=== PATIENT | female | born 2000 | race Caucasian/White ===

== ENCOUNTER 2024-10-09 21:11 | Emergency (ER) | payer BC ==
[2024-10-09 21:42] LABS: Specific Gravity < 1.005 (1.005-1.030)
[2024-10-09 22:05] LABS: Anion Gap 10.3 mEq/L (5.0-15.0); Potassium 3.3 mEq/L (3.5-5.1)
--- NOTE | 2024-10-09 22:08 | RAD REPORT ---
EXAM: Chest Single View HISTORY: 23 years Female Chest pain;Palpitations COMPARISON: None. FINDINGS: LUNGS/PLEURA: The lungs are clear. No pleural effusions or pneumothorax. No pulmonary edema. CARDIAC/MEDIASTINUM: The cardiac silhouette is within normal limits. UPPER ABDOMEN: No significant abnormality. BONES: No acute abnormality. LINES/TUBES/OTHER: N/A IMPRESSION: No evidence of acute cardiopulmonary disease.
[2024-10-09 22:09] LABS: Absolute Basophils 0.1 K/uL (0-0.5); Absolute Lymphocytes (CBC) 1.5 K/uL (0.7-4.9); Absolute Monocytes 0.4 K/uL (0.1-1.3); Absolute Neutrophil 7.4 K/uL (1.8-8.0); Basophils % 0.6 % (0-1.3); Eosinophils % 0.3 % (0-4.4); Hematocrit 35.2 % (36.0-45.0); Hemoglobin 12.5 g/dL (12.0-15.0); Lymphocytes % 15.9 % (15.3-44.8); MCH 33.7 pg (27.0-35.0); MCHC 35.6 g/dL (32.0-36.0); MCV 94.5 fL (80-100); MPV 7.1 fL (7.6-11.3); Monocytes % 4.3 % (3.3-12.3); Neutrophils % 78.9 % (41.7-73.7); Platelets 255 thou/uL (152-406); RBC Red Blood Cell Count 3.72 M/uL (3.86-4.86)
[2024-10-09] MEDS ORDERED: POTASSIUM CL SA 10 MEQ TAB PO ONE (22:47)
--- NOTE | 2024-10-09 22:55 | EDPHYS ---
Physician Documentation [facility] Name: Eliane Frederick Age: 23 yrs Sex: Female : 2000 Arrival Date: 10/09/2024 Time: 21:11 Bed 2 Private MD: ED Physician Guy Gonzalez HPI: 10/09 21:23 This 23 yrs old Female presents to ER via Unassigned with complaints of palpitations. rn 21:23 The patient presents with a history of irregular heart beat, heart racing. Onset: The rn symptoms/episode began/occurred just prior to arrival. Duration: The patient or guardian reports multiple episodes, that are intermittent. Modifying factors: The symptoms are aggravated by nothing. The symptoms are alleviated by Distraction. Severity of symptoms: At their worst the symptoms were moderate in the emergency department the symptoms have improved. The patient has experienced similar episodes in the past. Patient reports intermittent palpitations and chest pressure, happens about twice a month for a while now, has seen physicians without clear diagnosis. Has been told in the past is anxiety and is alleviated by distraction either tactile or distraction with her phone. No family history of early cardiac disease. No sudden in family. Patient denies any fever or cough. No recent illness. No trauma. No abdominal pain. Not sure if she is , reports irregular bleeding and was 2 weeks late. 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 - Infectious Disease History:: Denies. - Family history:: not pertinent. - Social history:: Smoking status: Patient/guardian denies using tobacco, Stopped _ months ago 3. - Hospitalizations: : No recent hospitalization is reported. ROS: 21:23 Constitutional: Negative for fever, chills, and weight loss, Cardiovascular: Positive rn for chest pressure and palpitations Respiratory: Negative for shortness of breath, cough, wheezing, and pleuritic chest pain, Abdomen/GI: Negative for abdominal pain, nausea, vomiting, diarrhea, and constipation, MS/Extremity: Negative for injury and deformity, Neuro: Negative for headache, weakness, numbness, tingling, and seizure, positive for spasms in all 4 extremities Exam: 21:23 Constitutional: This is a well developed, well nourished patient who is awake, alert, rn and in no acute distress. Appears anxious, intermittent spasms of extremities noted Cardiovascular: Regular rate and rhythm. No pulse deficits. Respiratory: No increased work of breathing, no retractions or nasal flaring. Abdomen/GI: Soft, non-tender, with normal bowel sounds. No distension or tympany. No guarding or rebound. No evidence of tenderness throughout. Skin: Warm, no cyanosis Neuro: Awake and alert, GCS 15 21:34 ECG was reviewed by the Attending Physician. rn Vital Signs: 21:12 BP 140 / 91; Pulse 83; Resp 15; Temp 98.8; Pulse Ox 100% ; vc1 21:30 BP 124 / 81; Pulse 75; Resp 19; Pulse Ox 100% ; al5 22:48 BP 124 / 84; Pulse 63; Resp 16; Pulse Ox 100% ; al5 MDM: 21:12 Medical Screening Exam initiated rn 22:54 Differential diagnosis: arrythmia, dehydration, stress disorder. Data reviewed: vital rn signs, nurses notes, lab test result(s), EKG, radiologic studies, plain films, and as a result, I will discharge patient. Counseling: I had a detailed discussion with the patient and/or guardian regarding the historical points, exam findings, and any diagnostic results supporting the discharge/admit diagnosis, lab results, radiology results, the need for outpatient follow up, to return to the emergency department if symptoms worsen or persist or if there are any questions or concerns that arise at home. Response to treatment: the patient's symptoms have resolved after treatment, the patient's condition has returned to base line, the patient is now symptom free, and as a result, I will discharge patient. Special discussion: I discussed with the patient/guardian in detail that at this point there is no indication for admission to the hospital. It is understood, however, that if the symptoms persist or worsen the patient needs to return immediately for re-evaluation. Special discussion: Based on the history and exam findings, there is no indication for further emergent testing or inpatient evaluation. I discussed with the patient/guardian the need to see the clean out driller for further evaluation of the symptoms. ED course: No acute findings and workup. Troponin negative. D-dimer negative. Chest x-ray images negative per my interpretation. No oxygen requirement and no evidence of arrhythmia here. Has been happening for a long time with several episodes during each month. ECG shows possible left atrial enlargement. Told her she absolutely needs to follow-up to rule out mitral valve prolapse or other arrhythmia with Holter monitor and echo. Understands the need to follow-up. I have personally reviewed all of the results, including but not limited to blood tests and imaging deemed necessary to safely discharge this patient at this time. All results given to and printed out for patient. I personally went over all the results with the patient and answered all questions. Patient will follow-up with PCP and or specialist as discussed. Return precautions given and understood.. 10/09 21:21 Order name: Basic Metabolic Panel; Complete Time: : rn 10/09 21:21 Order name: CBC with Diff; Complete Time: : 10/09 21:21 Order name: D-Dimer; Complete Time: 22: rn 10/09 21:21 Order name: NT PRO-BNP; Complete Time: : rn 10/09 21:21 Order name: Troponin HS; Complete Time: : rn 10/09 21:21 Order name: Test, Urine; Complete Time: :10/09 21:21 Order name: XRAY Chest (1 view); Complete Time: :15 rn 10/09 21:21 Order name: Cardiac monitoring; Complete Time: :10/09 21:21 Order name: EKG - Nurse/Tech; Complete Time: :10/09 21:21 Order name: IV Saline Lock; Complete Time: :10/09 21:21 Order name: Labs collected and sent; Complete Time: :10/09 21:21 Order name: O2 Per Protocol; Complete Time: 10/09 21:21 Order name: O2 Sat Monitoring; Complete Time: : rn EC:34 Rate is 85 beats/min. Rhythm is regular. QRS Meridian is Normal. OR interval is normal. QRS rn interval is normal. QT interval is normal. No Q waves. T waves are Normal. No ST changes noted. Clinical impression: NSR w/ Non-specific ST/T Changes. Interpreted by me. Reviewed by me. Administered Medications: 22:50 Drug: Potassium Chloride PO 40 mEq PO once Route: PO; al5 23:01 Follow up: Response: No adverse reaction al5 Disposition Summary: 10/09/24 22:55 Discharge Ordered Notes: Location: Home rn Problem: an ongoing problem rn Symptoms: have improved rn Condition: Stable rn Diagnosis - Palpitations rn - Chest pain, unspecified rn Followup: rn - With: Private Physician - When: As needed - Reason: Recheck today's complaints, Re-evaluation by your physician Discharge Instructions: - Discharge Summary Sheet rn - Nonspecific Chest Pain, Adult rn - Palpitations rn Forms: - Medication Reconciliation Form rn - Antibiotic rn case mgr - Prescription Opioid Use rn - Patient Portal Instructions rn - Leadership Thank You Letter rn Signatures: Dispatcher [employer] EDMS Guy Gonzalez MD MD rn Calcote, Vanessa, RN RN vc1 Mattie Deluna RN RN al5 Corrections: (The following items were deleted from the chart) 21:22 21:22 Chest Single View+RAD.RAD.BRZ ordered. EDTX EDMS
--- NOTE | 2024-10-09 22:55 | ER ---
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 vc1 21:12 Coronavirus screen: Client denies travel out of the [place] in the last 14 days. At this vc1 time, the client does not indicate any symptoms associated with coronavirus-19. Ebola Screen: Patient negative for fever greater than or equal to 101.5 degrees Fahrenheit, and additional compatible Ebola Virus Disease symptoms Patient denies exposure to infectious person. Patient denies travel to an Ebola-affected area in the 21 days before illness onset. No symptoms or risks identified at this time. Initial Sepsis Screen: Does the patient meet any 2 criteria? No. Patient's initial sepsis screen is negative. Does the patient have a suspected source of infection? No. Patient's initial sepsis screen is negative. Risk Assessment: Do you want to hurt yourself or someone else? Patient reports no desire to harm self or others. Onset of symptoms was October 09, 2024. Care prior to arrival: Medication(s) given: Normal saline infusion, 700cc IV initiated. 20 GA, in the left antecubital area, Glucose check: 84. 21:12 Method Of Arrival: EMS: [facility] vc1 21:12 Acuity: MURALI 3 vc1 Triage Assessment: 21:12 General: Appears in no apparent distress. uncomfortable, slender, well groomed, well vc1 developed, well nourished, Behavior is cooperative, anxious. Pain: Complains of pain in right mid back and chest Pain does not radiate. Pain currently is 8 out of 10 on a pain scale. Quality of pain is described as tightness Pain began suddenly. EENT: No deficits noted. No signs and/or symptoms were reported regarding the EENT system. Neuro: Level of Consciousness is awake, alert, obeys commands, Oriented to person, place, time, situation, Appropriate for age. Neuro: Reports tingling. Cardiovascular: Reports chest pain, palpitations, Heart tones S1 S2 present Capillary refill < 3 seconds Patient's skin is warm and dry. Respiratory: Airway is patent Respiratory effort is even, unlabored, Respiratory pattern is regular, symmetrical, Breath sounds are clear. GI: No deficits noted. No signs and/or symptoms were reported involving the gastrointestinal system. : No deficits noted. No signs and/or symptoms were reported regarding the genitourinary system. Urine is clear. Derm: Skin is intact, is healthy with good turgor, Skin is dry, Skin is normal, Skin temperature is warm. Musculoskeletal: Circulation, motion, and sensation intact. Range of motion: intact in all extremities. 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 - Infectious Disease History:: Denies. - Family history:: not pertinent. - Social history:: Smoking status: Patient/guardian denies using tobacco, Stopped _ months ago 3. - Hospitalizations: : No recent hospitalization is reported. Screenin:12 [facility] ED Fall Risk Assessment (Adult) History of falling in the last 3 months, vc1 including since admission No falls in past 3 months (0 pts) Confusion or Disorientation No (0 pts) Intoxicated or Sedated No (0 pts) Impaired Gait No (0 pts) Mobility Assist Device Used No (0 pt) Altered Elimination No (0 pt) Score/Fall Risk Level 0 - 2 = Low Risk Oriented to surroundings, Maintained a safe environment, Educated pt \T\ family on fall prevention, incl call for assistance when getting out of bed, Provided non-skid footwear, Hourly rounding (assess needs \T\ fall precautionary measures) done. Abuse screen: Denies threats or abuse. Nutritional screening: No deficits noted. Tuberculosis screening: No symptoms or risk factors identified. Assessment: 22:52 General: Appears in no apparent distress. comfortable, Behavior is calm, cooperative. al5 Pain: Denies pain. Neuro: Level of Consciousness is awake, alert, obeys commands, Oriented to person, place, time, situation. Cardiovascular: Reports chest pain initially, denies now Capillary refill < 3 seconds Patient's skin is warm and dry. Rhythm is sinus rhythm. Respiratory: Airway is patent Respiratory effort is even, unlabored, Respiratory pattern is regular, symmetrical. GI: No signs and/or symptoms were reported involving the gastrointestinal system. : No signs and/or symptoms were reported regarding the genitourinary system. EENT: No signs and/or symptoms were reported regarding the EENT system. Derm: Skin is intact, is healthy with good turgor, Skin is pink, warm \T\ dry. normal. Musculoskeletal: No signs and/or symptoms reported regarding the musculoskeletal system. Vital Signs: 21:12 BP 140 / 91; Pulse 83; Resp 15; Temp 98.8; Pulse Ox 100% ; vc1 21:30 BP 124 / 81; Pulse 75; Resp 19; Pulse Ox 100% ; al5 22:48 BP 124 / 84; Pulse 63; Resp 16; Pulse Ox 100% ; al5 ED Course: 21:12 Patient arrived in ED. rn 21:12 Guy Gonzalez MD is Attending Physician. rn 21:12 Patient has correct armband on for positive identification. Bed in low position. Call vc1 light in reach. Side rails up X 1. Provided Education on: plan of care. bath house attendant on. Pulse ox on. NIBP on. 21:15 Arm band placed on left wrist. vc1 21:15 Maintain EMS IV. Dressing intact. Good blood return noted. Site clean \T\ dry. Gauge \T\ vc 1 site: 20G L AC. Flushed with 10 mL NS. 21:38 Triage completed. vc1 21:40 XRAY Chest (1 view) In Process Unspecified. EDMS 22:50 Mattie Deluna, RN is Primary Nurse. al5 22:53 No provider procedures requiring assistance completed. al5 23:00 IV discontinued, intact, bleeding controlled, No redness/swelling at site. Pressure al5 dressing applied. Administered Medications: 22:50 Drug: Potassium Chloride PO 40 mEq PO once Route: PO; al5 23:01 Follow up: Response: No adverse reaction al5 Medication: 21:50 VIS not applicable for this client. vc1 Outcome: 22:55 Discharge ordered by . rn 23:01 Discharged to home ambulatory, with family, al5 23:01 Condition: good 23:01 Discharge instructions given to patient, Instructed on discharge instructions, follow up and referral plans. Demonstrated understanding of instructions, follow-up care, 23:01 Patient left the ED. al5 Signatures: Dispatcher [employer] Guy Barboza MD MD rn Calcote, Vanessa RN RN vc1 Mattie Deluna RN RN al5
[2024-10-09 23:20] VITALS: TEMP 98.8; O2SAT 100
[2024-10-09 23:24] VITALS: BP 124/84
--- NOTE | 2024-10-13 12:20 | EKG ---
Test Date: 2024-10-09 Test Time: 21:24:24 Event Planning Manager: OSCAR MEASUREMENT RESULTS: Intervals: Rate: 85 SC: 162 QRSD: 84 QT: 368 QTc: 437 [place]: P: 71 SC: 162 QRS: 85 T: 30 INTERPRETIVE STATEMENTS: Normal sinus rhythm with sinus arrhythmia Possible Left atrial enlargement Possible Anterior infarct, age undetermined Abnormal ECG No previous ECG available for comparison Electronically Signed On 10-13-24 12:10:59 CDT by Ang Lopez
== END 2024-10-09 23:01 | disposition home or self-care (01) ==
LOC: ER 21:11
DX: R00.2 Palpitations (principal); R07.9 Chest pain, unspecified
CPT/HCPCS: 36415; 71045; 80048; 81025; 83880; 84484; 85025; 85379; 93005; 99284